=== PATIENT | female | born 1990 | race Caucasian/White ===

== ENCOUNTER 2025-03-28 10:27 | Observation (INO) ==
[2025-03-28 12:15] LABS: BASOPHILS % (AUTO) 0.2 % (0.2-1.0); EOSINOPHILS % (AUTO) 0.1 % (0.9-2.9); HEMATOCRIT 38.6 % (36.0-47.0); HEMOGLOBIN 13.1 g/dL (12.0-16.0); LYMPHOCYTES # (AUTO) 2.4 X10^3/uL (1.3-2.9); LYMPHOCYTES % (AUTO) 18.4 % (21.0-51.0); MEAN CORPUSCULAR HEMOGLOBIN 30.8 pg (27.0-34.0); MEAN CORPUSCULAR HGB CONC 33.9 g/dL (33.0-35.0); MEAN CORPUSCULAR VOLUME 90.7 fL (80.0-100.0); MEAN PLATELET VOLUME 7.1 fL (7.4-11.0); MONOCYTES # (AUTO) 0.8 x10^3/uL (0.3-0.8); MONOCYTES % (AUTO) 6.4 % (0.0-13.0); NEUTROPHILS # (AUTO) 9.9 x10^3/uL (2.2-4.8); NEUTROPHILS % (AUTO) 74.9 % (42.0-75.0); PLATELET COUNT 480 X10^3/uL (150.0-450.0); RED BLOOD COUNT 4.25 X10^6/uL (3.5-5.4); RED CELL DISTRIBUTION WIDTH 12.9 % (11.6-16.5); WHITE BLOOD COUNT 13.2 X10^3/uL (3.6-10.0)
[2025-03-28 12:23] LABS: ALANINE AMINOTRANSFERASE 31 Units/L (12-78); ALBUMIN 4.4 g/dL (3.4-5.0); ALKALINE PHOSPHATASE 92 Units/L (46-116); ASPARTATE AMINO TRANSFERASE 18 Units/L (15-37); BLOOD UREA NITROGEN 11 mg/dL (7-18); CALCIUM 9.8 mg/dL (8.5-10.1); CHLORIDE 101 mmol/L (98-107); CREATININE 0.71 mg/dL (0.55-1.02); GLUCOSE 86 mg/dL (65-99); POTASSIUM 3.7 mmol/L (3.5-5.1); SODIUM 138 mmol/L (136-145); TOTAL PROTEIN 9.3 g/dL (6.4-8.2); eGFR NON BLACK RACES > 60 (>60)
--- NOTE | 2025-03-28 13:53 | RAD ---
EXAMINATION: CHEST, 1 VIEW HISTORY: sob, cough; . COMPARISON STUDY: CT chest 02/14/2024 TECHNIQUE: One view FINDINGS: Heart size is normal. Lungs are clear. No pneumothorax. Hilar and mediastinal structures and bony structures are unremarkable. IMPRESSION: No acute findings THIS IS AN ELECTRONICALLY VERIFIED FINAL REPORT 03/28/2025 1:50 PM - Electronically signed by Antwan Westfall MD
[2025-03-28] MEDS: DUONEB 0.5 MG/3 MG (3 mL) NEB SCH (14:04)
[2025-03-28] MEDS: TESSALON PERLES PO PRN (14:21)
[2025-03-28] MEDS: ROBITUSSIN DM PO PRN (14:21)
[2025-03-28] MEDS: LEVAQUIN PREMIX IV 750 MG 750 MG/150 ML BAG IV SCH (14:22)
[2025-03-28] MEDS: NS 1,000 ML IV 1,000 ML IV SCH (14:26)
[2025-03-28 14:53] VITALS: BMI 31.8
[2025-03-28] MEDS: PULMICORT NEB TX 0.5 MG NEB SCH (20:17)
[2025-03-28] MEDS: PROzac PO SCH (20:36)
[2025-03-28] MEDS: TUSSIONEX PENNKINETIC SUSP PO PRN (20:39)
[2025-03-29 05:28] LABS: BASOPHILS % (AUTO) 0.5 % (0.2-1.0); EOSINOPHILS # (AUTO) 0.1 x10^3/uL (0.0-0.2); EOSINOPHILS % (AUTO) 1.1 % (0.9-2.9); HEMATOCRIT 34.6 % (36.0-47.0); HEMOGLOBIN 11.7 g/dL (12.0-16.0); LYMPHOCYTES # (AUTO) 2.4 X10^3/uL (1.3-2.9); MEAN CORPUSCULAR HEMOGLOBIN 30.9 pg (27.0-34.0); MEAN CORPUSCULAR HGB CONC 33.8 g/dL (33.0-35.0); MEAN CORPUSCULAR VOLUME 91.3 fL (80.0-100.0); MEAN PLATELET VOLUME 7.6 fL (7.4-11.0); MONOCYTES # (AUTO) 0.6 x10^3/uL (0.3-0.8); MONOCYTES % (AUTO) 7.9 % (0.0-13.0); NEUTROPHILS # (AUTO) 4.3 x10^3/uL (2.2-4.8); NEUTROPHILS % (AUTO) 57.5 % (42.0-75.0); PLATELET COUNT 391 X10^3/uL (150.0-450.0); RED BLOOD COUNT 3.79 X10^6/uL (3.5-5.4); RED CELL DISTRIBUTION WIDTH 13.1 % (11.6-16.5); WHITE BLOOD COUNT 7.4 X10^3/uL (3.6-10.0)
[2025-03-29 05:40] LABS: ALANINE AMINOTRANSFERASE 26 Units/L (12-78); ALBUMIN 3.5 g/dL (3.4-5.0); ALKALINE PHOSPHATASE 77 Units/L (46-116); ASPARTATE AMINO TRANSFERASE 10 Units/L (15-37); BLOOD UREA NITROGEN 15 mg/dL (7-18); CALCIUM 8.5 mg/dL (8.5-10.1); CARBON DIOXIDE 26.2 mmol/L (21-32); CHLORIDE 106 mmol/L (98-107); CREATININE 0.87 mg/dL (0.55-1.02); GLUCOSE 88 mg/dL (65-99); POTASSIUM 3.8 mmol/L (3.5-5.1); SODIUM 143 mmol/L (136-145); TOTAL PROTEIN 7.4 g/dL (6.4-8.2); eGFR NON BLACK RACES > 60 (>60)
[2025-03-29 06:01] LABS: BAND NEUTROPHILS % 1 % (0-10); METAMYELOCYTES % 2; PLATELET MORPHOLOGY COMMENT NORMAL (NORMAL)
[2025-03-29] MEDS ORDERED: PROzac PO SCH (09:00)
[2025-03-29] MEDS: SOLU-Medrol 40 MG VIAL IVP SCH (10:37)
--- NOTE | 2025-03-29 11:08 | DR.H&P ---
H&P History & Physical for Day of: H&P Date: 03/28/25 Chief Complaint Chief Complaint: cough shortness of breath History of Present Illness History of Present Illness: Patient is a 35-year-old female presenting with cough, shortness of breath, and weakness for the past few days. She reports that her children were recently diagnosed with flu. She reports symptoms have progressively gotten worse and has had chills. Labs/imaging: WBC 13.2, hemoglobin 13.1, platelets 480, sodium 138, potassium 3.7, creatinine 0.71, glucose 86, D-dimer 0.3, AIT pending, chest x-ray was obtained that revealed no acute cardiopulmonary findings. Due to her symptoms patient was admitted for pneumonia. She was started on IV antibiotics Levaquin, scheduled bronchodilators, antitussive medication. Home medications were restarted. Otherwise continue current treatment plan. Continue closely monitor and follow- up labs/imaging. Past Surgical History Surgical History: Family History Family Medical History: Diabetes Mellitus, Cancer, [place] and Hypertension Social History Type of Tobacco Use: None Alcohol Use: Rarely Drug Use: None Medications Home Medications: Home Medications Medication Instructions Recorded Confirmed Type albuterol sulfate 2.5 mg/3 mL 2.5 mg inhalation QID MI N 03/28/25 03/28/25 History (0.083 %) solution for nebulization cefdinir 300 mg capsule 300 mg PO BID 03/28/2503/28 History codeine 10 mg-guaifenesin 100 mg/5 5 ml PO BID 5 03/28/25 History mL oral liquid dicyclomine 20 mg tablet 20 mg PO TID 03/28/25 History fluoxetine 20 mg capsule 20 mg PO QPM 03/28/25 History ipratropium bromide 0.02 % 0.02 mg inhalation QID PRN 03/28/25 03/28/25 History solution for inhalation risankizumab-rzaa 150 mg/mL 150 mg subcut DIRECTED 03/28/25 03/28/25 History subcutaneous pen injector (Skyrizi) Allergies Allergies Allergy/AdvReac Type Severity Reaction Status Date / Time No Known Drug Allergies Allergy Unknown Verified 03/29/25 07:41 Labs 03/29/25 04:17 03/29/25 04:17 Labs: Laboratory WBC 7.4 X10^3/uL (3.6-10.0) 03/29/25 04:17 RBC 3.79 X10^6/uL (3.5-5.4) 03/29/25 04:17 Hgb 11.7 g/dL (12.0-16.0) L 03/29/25 04:17 Hct 34.6 % (36.0-47.0) L 03/29/25 04:17 MCV 91.3 fL (80.0-100.0) 03/29/25 04:17 MCH 30.9 pg (27.0-34.0) 03/29/25 04:17 MCHC 33.8 g/dL (33.0-35.0) 03/29/25 04:17 RDW 13.1 % (11.6-16.5) 03/29/25 04:17 Plt Count 391 X10^3/uL (150.0-450.0) 03/29/25 04:17 Plt Count Comment Adequate (ADEQUATE) 03/29/25 04:17 MPV 7.6 fL (7.4-11.0) 03/29/25 04:17 Neut % (Auto) 57.5 % (42.0-75.0) 03/29/25 04:17 Lymph % (Auto) 33.0 % (21.0-51.0) 03/29/25 04:17 [place] % (Auto) 7.9 % (0.0-13.0) 03/29/25 04:17 Eos % (Auto) 1.1 % (0.9-2.9) 03/29/25 04:17 Baso % (Auto) 0.5 % (0.2-1.0) 03/29/25 04:17 Neut # (Auto) 4.3 x10^3/uL (2.2-4.8) 03/29/25 04:17 Lymph # (Auto) 2.4 X10^3/uL (1.3-2.9) 03/29/25 04:17 [place] # (Auto) 0.6 x10^3/uL (0.3-0.8) 03/29/25 04:17 Eos # (Auto) 0.1 x10^3/uL (0.0-0.2) 03/29/25 04:17 Baso # (Auto) 0.0 X10^3/uL (0.0-0.1) 03/29/25 04:17 Absolute Nucleated RBC 0.1 /100WBC 03/29/25 04:17 Total Counted 100 03/29/25 04:17 Neutrophils % (Manual) 57 % (39-76) 03/29/25 04:17 Band Neutrophils % 1 % (0-10) 03/29/25 04:17 Lymphocytes % (Manual) 37 % (13-43) 03/29/25 04:17 Monocytes % (Manual) 3 % (4-9) L 03/29/25 04:17 Metamyelocytes % 2 03/29/25 04:17 Plt Morphology Comment Normal (NORMAL) 03/29/25 04:17 RBC Morphology Normal (NORMAL) 03/29/25 04:17 D-Dimer 0.30 ug/ml (0.0-0.57) 03/28/25 11:55 Sodium 143 mmol/L (136-145) 03/29/25 04:17 Corrected Sodium TNP 03/29/25 04:17 Potassium 3.8 mmol/L (3.5-5.1) 03/29/25 04:17 Chloride 106 mmol/L (98-107) 03/29/25 04:17 Carbon Dioxide 26.2 mmol/L (21-32) 03/29/25 04:17 BUN 15 mg/dL (7-18) 03/29/25 04:17 Creatinine 0.87 mg/dL (0.55-1.02) 03/29/25 04:17 Est GFR (MDRD) Af Amer > 60 (>60) 03/29/25 04:17 Est GFR (MDRD) Non-Af > 60 (>60) 03/29/25 04:17 Glucose 88 mg/dL (65-99) 03/29/25 04:17 Calcium 8.5 mg/dL (8.5-10.1) 03/29/25 04:17 Corrected Calcium TNP 03/29/25 04:17 Magnesium 2.0 mg/dL (2.0-2.9) 03/29/25 04:17 Total Bilirubin 0.20 mg/dL (0.2-1.0) 03/29/25 04:17 AST 10 Units/L (15-37) L 03/29/25 04:17 ALT 26 Units/L (12-78) 03/29/25 04:17 Alkaline Phosphatase 77 Units/L (46-116) 03/29/25 04:17 Total Protein 7.4 g/dL (6.4-8.2) 03/29/25 04:17 Albumin 3.5 g/dL (3.4-5.0) 03/29/25 04:17 Globulin 3.9 g/dL (2.5-4.5) 03/29/25 04:17 Albumin/Globulin Ratio 0.9 Ratio (1.1-2.1) L 03/29/25 04:17 Influenza Type A Ag Negative-presumptive (NEGATIVE) 03/28/25 12:40 Influenza Type B Ag Negative-presumptive (NEGATIVE) 03/28/25 12:40 Resp Viral Panel (PCR) See scanned report 03/28/25 14:11 Review of Systems Constitutional: Chills and Weakness Eyes: No Symptoms Reported ENT: No Symptoms Reported Respiratory: Cough and Shortness of Breath Cardiovascular: No Symptoms Reported Gastrointestinal: No Symptoms Reported Genitourinary: No Symptoms Reported Musculoskeletal: No Symptoms Reported Skin: No Symptoms Reported Neurological: No Symptoms Reported Physical Exam Vital Signs: Vital Signs Temperature 99.3 F Temperature 98.4 F Pulse Rate 113 Pulse Rate 113 Pulse Rate 70 Respiratory Rate 20 Blood Pressure 127/78 O2 Sat by Pulse Oximetry 97 O2 Sat by Pulse Oximetry 97 O2 Sat by Pulse Oximetry 97 Oriented: Normal Eyes: Normal Ear: Normal Nose: Normal Throat: Normal Respiratory: Rhonchi Throughout Cardiovascular: Normal : Normal Auscultation: Bowel Sounds: Normal Palpation: Normal Tenderness: Normal Skin: Normal Musculoskeletal: Normal Psychiatric: Normal Mood Description: Calm and Appropriate Affect: Normal Speech Pattern: Clear and Appropriate Assessment/Plan (1) CAP (community acquired pneumonia): Qualifiers: Laterality: unspecified laterality Qualified Code(s): J18.9 - Pneumonia, unspecified organism Status: Acute Plan: IV antibiotics (2) Acute bronchitis: Qualifiers: Bronchitis organism: unspecified organism Qualified Code(s): J20.9 - Acute bronchitis, unspecified Status: None Review H&P Reviewed: Yes Patient was examined?: Yes
--- NOTE | 2025-03-29 11:26 | PCM.PROG ---
Progress Note Progress Note for Day of Date of Exam: 03/29/25 Subjective Subjective: Patient is a 35-year-old female admitted for community-acquired pneumonia. This morning she is resting in bed. She reports improvement in her symptoms. No acute events overnight. Labs/imaging: WBC 7.4, hemoglobin 11.7, platelets 391, sodium 143, potassium 3.8, creatinine 0.87, glucose 88. AIT negative. Leukocytosis trending down. Will start patient on IV Solu-Medrol 40 mg daily to help with bronchiolitis. Continue IV Levaquin. Scheduled bronchodilators. Home medications have been resumed. Antitussive medications as needed. Otherwise continue current treatment plan. Continue closely monitor and follow-up labs/imaging. Past Medical Family Social History Allergies: Allergies No Known Drug Allergies Allergy (Unknown, Verified 03/29/25 07:41) Onset Date: 08/19/2020 Review of Systems ROS changes noted: see HPI Vital Signs and I&O's Vital Signs: Vital Signs Temperature 99.3 F Temperature 98.4 F Pulse Rate 113 Pulse Rate 113 Pulse Rate 70 Respiratory Rate 20 Blood Pressure 127/78 O2 Sat by Pulse Oximetry 97 O2 Sat by Pulse Oximetry 97 O2 Sat by Pulse Oximetry 97 Intake and Output: Intake & Output 03/26/25 03/27/25 03/28/25 03/29/25 23:59 23:59 23:59 23:59 Intake Total 1700 / 1700 1653 / 1653 Balance 1700 / 1700 1653 / 1653 Physical Exam Oriented: Normal Eyes: Normal Ear: Normal Nose: Normal Throat: Normal Respiratory: Rhonchi Cardiovascular: Normal : Normal Auscultation: Bowel Sounds: Normal Tenderness: Normal Skin: Normal Musculoskeletal: Normal Psychiatric: Normal Mood Description: Calm and Appropriate Affect: Normal Speech Pattern: Clear and Appropriate Laboratory and Diagnostics 03/29/25 04:17 03/29/25 04:17 Labs: Laboratory WBC 7.4 X10^3/uL (3.6-10.0) 03/29/25 04:17 RBC 3.79 X10^6/uL (3.5-5.4) 03/29/25 04:17 Hgb 11.7 g/dL (12.0-16.0) L 03/29/25 04:17 Hct 34.6 % (36.0-47.0) L 03/29/25 04:17 MCV 91.3 fL (80.0-100.0) 03/29/25 04:17 MCH 30.9 pg (27.0-34.0) 03/29/25 04:17 MCHC 33.8 g/dL (33.0-35.0) 03/29/25 04:17 RDW 13.1 % (11.6-16.5) 03/29/25 04:17 Plt Count 391 X10^3/uL (150.0-450.0) 03/29/25 04:17 Plt Count Comment Adequate (ADEQUATE) 03/29/25 04:17 MPV 7.6 fL (7.4-11.0) 03/29/25 04:17 Neut % (Auto) 57.5 % (42.0-75.0) 03/29/25 04:17 Lymph % (Auto) 33.0 % (21.0-51.0) 03/29/25 04:17 [place] % (Auto) 7.9 % (0.0-13.0) 03/29/25 04:17 Eos % (Auto) 1.1 % (0.9-2.9) 03/29/25 04:17 Baso % (Auto) 0.5 % (0.2-1.0) 03/29/25 04:17 Neut # (Auto) 4.3 x10^3/uL (2.2-4.8) 03/29/25 04:17 Lymph # (Auto) 2.4 X10^3/uL (1.3-2.9) 03/29/25 04:17 [place] # (Auto) 0.6 x10^3/uL (0.3-0.8) 03/29/25 04:17 Eos # (Auto) 0.1 x10^3/uL (0.0-0.2) 03/29/25 04:17 Baso # (Auto) 0.0 X10^3/uL (0.0-0.1) 03/29/25 04:17 Absolute Nucleated RBC 0.1 /100WBC 03/29/25 04:17 Total Counted 100 03/29/25 04:17 Neutrophils % (Manual) 57 % (39-76) 03/29/25 04:17 Band Neutrophils % 1 % (0-10) 03/29/25 04:17 Lymphocytes % (Manual) 37 % (13-43) 03/29/25 04:17 Monocytes % (Manual) 3 % (4-9) L 03/29/25 04:17 Metamyelocytes % 2 03/29/25 04:17 Plt Morphology Comment Normal (NORMAL) 03/29/25 04:17 RBC Morphology Normal (NORMAL) 03/29/25 04:17 D-Dimer 0.30 ug/ml (0.0-0.57) 03/28/25 11:55 Sodium 143 mmol/L (136-145) 03/29/25 04:17 Corrected Sodium TNP 03/29/25 04:17 Potassium 3.8 mmol/L (3.5-5.1) 03/29/25 04:17 Chloride 106 mmol/L (98-107) 03/29/25 04:17 Carbon Dioxide 26.2 mmol/L (21-32) 03/29/25 04:17 BUN 15 mg/dL (7-18) 03/29/25 04:17 Creatinine 0.87 mg/dL (0.55-1.02) 03/29/25 04:17 Est GFR (MDRD) Af Amer > 60 (>60) 03/29/25 04:17 Est GFR (MDRD) Non-Af > 60 (>60) 03/29/25 04:17 Glucose 88 mg/dL (65-99) 03/29/25 04:17 Calcium 8.5 mg/dL (8.5-10.1) 03/29/25 04:17 Corrected Calcium TNP 03/29/25 04:17 Magnesium 2.0 mg/dL (2.0-2.9) 03/29/25 04:17 Total Bilirubin 0.20 mg/dL (0.2-1.0) 03/29/25 04:17 AST 10 Units/L (15-37) L 03/29/25 04:17 ALT 26 Units/L (12-78) 03/29/25 04:17 Alkaline Phosphatase 77 Units/L (46-116) 03/29/25 04:17 Total Protein 7.4 g/dL (6.4-8.2) 03/29/25 04:17 Albumin 3.5 g/dL (3.4-5.0) 03/29/25 04:17 Globulin 3.9 g/dL (2.5-4.5) 03/29/25 04:17 Albumin/Globulin Ratio 0.9 Ratio (1.1-2.1) L 03/29/25 04:17 Influenza Type A Ag Negative-presumptive (NEGATIVE) 03/28/25 12:40 Influenza Type B Ag Negative-presumptive (NEGATIVE) 03/28/25 12:40 Resp Viral Panel (PCR) See scanned report 03/28/25 14:11 Plan (1) CAP (community acquired pneumonia): Status: Acute Qualifiers: Laterality: unspecified laterality Qualified Code(s): J18.9 - Pneumonia, unspecified organism Plan: IV antibiotics (2) Acute bronchitis: Status: None Qualifiers: Bronchitis organism: unspecified organism Qualified Code(s): J20.9 - Acute bronchitis, unspecified
[2025-03-29] MEDS: RESTORIL CAP 15 MG PO PRN (20:31)
[2025-03-30 04:16] VITALS: RESP 18
[2025-03-30 04:36] LABS: BASOPHILS % (AUTO) 0.2 % (0.2-1.0); EOSINOPHILS % (AUTO) 0.3 % (0.9-2.9); HEMATOCRIT 35.5 % (36.0-47.0); HEMOGLOBIN 12.4 g/dL (12.0-16.0); LYMPHOCYTES # (AUTO) 2.2 X10^3/uL (1.3-2.9); MEAN CORPUSCULAR HEMOGLOBIN 31.7 pg (27.0-34.0); MEAN CORPUSCULAR VOLUME 90.6 fL (80.0-100.0); MEAN PLATELET VOLUME 7.2 fL (7.4-11.0); MONOCYTES # (AUTO) 0.7 x10^3/uL (0.3-0.8); MONOCYTES % (AUTO) 6.1 % (0.0-13.0); NEUTROPHILS # (AUTO) 7.7 x10^3/uL (2.2-4.8); NEUTROPHILS % (AUTO) 72.4 % (42.0-75.0); PLATELET COUNT 411 X10^3/uL (150.0-450.0); RED BLOOD COUNT 3.92 X10^6/uL (3.5-5.4); RED CELL DISTRIBUTION WIDTH 13.4 % (11.6-16.5); WHITE BLOOD COUNT 10.6 X10^3/uL (3.6-10.0)
[2025-03-30 04:46] LABS: ALANINE AMINOTRANSFERASE 24 Units/L (12-78); ALBUMIN 3.6 g/dL (3.4-5.0); ALKALINE PHOSPHATASE 80 Units/L (46-116); ASPARTATE AMINO TRANSFERASE 10 Units/L (15-37); BLOOD UREA NITROGEN 9 mg/dL (7-18); CALCIUM 8.7 mg/dL (8.5-10.1); CARBON DIOXIDE 26.9 mmol/L (21-32); CHLORIDE 103 mmol/L (98-107); CREATININE 0.75 mg/dL (0.55-1.02); GLUCOSE 97 mg/dL (65-99); POTASSIUM 4.1 mmol/L (3.5-5.1); SODIUM 141 mmol/L (136-145); TOTAL PROTEIN 7.7 g/dL (6.4-8.2); eGFR NON BLACK RACES > 60 (>60)
[2025-03-30 08:13] VITALS: BP 128/72; PULSE 105; TEMP 98.4
[2025-03-30 09:24] VITALS: O2SAT 96
--- NOTE | 2025-04-03 16:12 | W.DIS.FURT ---
Summary of Discharge Discharge Summary of Date Date of Exam: 03/30/25 Admission Date Date of Admission: 04/27/25 Admission Diagnosis Hospital Course: Patient is a 35-year-old female admitted for community-acquired pneumonia. Her hospital/treatment course included IV Solu-Medrol 40 mg daily and antibiotics IV Levaquin. Scheduled bronchodilators. Home medications have been resumed. Antitussive medications as needed. She has responded well to treatments and symptoms significantly improved. AIT culture negative. She was discharged in stable condition. Prescribed Levaquin and prednisone. She will follow-up with her PCP in 1 week. Vital Signs: Vital Signs (72 hours) 03/28/25 12:00 03/28/25 14:05 03/28/25 14:56 Temperature 98.1 F Pulse Rate 98 H Pulse Rate [Left] 91 H Respiratory Rate 17 Blood Pressure Blood Pressure [Right Arm] 127/81 O2 Sat by Pulse Oximetry 100 99 Oxygen Delivery Method Room Air Room Air FIO2% 03/28/25 16:00 03/28/25 19:00 03/28/25 20:17 Temperature 98.1 F Pulse Rate Pulse Rate [Left] 91 H Respiratory Rate 17 Blood Pressure Blood Pressure [Right Arm] 130/90 O2 Sat by Pulse Oximetry 97 Oxygen Delivery Method Room Air Room Air Room Air FIO2% 03/28/25 20:31 03/28/25 20:44 03/28/25 20:44 Temperature 98.0 F Pulse Rate 103 H 117 H Pulse Rate [Left] Respiratory Rate Blood Pressure 141/63 Blood Pressure [Right Arm] O2 Sat by Pulse Oximetry 98 98 Oxygen Delivery Method FIO2% 03/29/25 00:00 03/29/25 00:04 03/29/25 02:00 Temperature 98.2 F Pulse Rate 76 87 Pulse Rate [Left] Respiratory Rate Blood Pressure 129/81 Blood Pressure [Right Arm] O2 Sat by Pulse Oximetry 96 97 Oxygen Delivery Method FIO2% 03/29/25 04:00 03/29/25 07:00 03/29/25 08:00 Temperature 98.4 F 99.3 F Pulse Rate 70 113 H Pulse Rate [Left] Respiratory Rate 20 Blood Pressure 127/78 Blood Pressure [Right Arm] O2 Sat by Pulse Oximetry 97 97 Oxygen Delivery Method Room Air Room Air FIO2% 03/29/25 08:19 03/29/25 08:19 03/29/25 12:00 Temperature 98.6 F Pulse Rate 113 H 100 H Pulse Rate [Left] Respiratory Rate 20 Blood Pressure 130/70 Blood Pressure [Right Arm] O2 Sat by Pulse Oximetry 97 97 Oxygen Delivery Method Room Air Room Air FIO2% 03/29/25 13:23 03/29/25 16:00 03/29/25 17:42 Temperature 99.2 F Pulse Rate 98 H 79 100 H Pulse Rate [Left] Respiratory Rate 20 Blood Pressure 125/70 Blood Pressure [Right Arm] O2 Sat by Pulse Oximetry 99 97 98 Oxygen Delivery Method Room Air FIO2% 03/29/25 19:00 03/29/25 20:00 03/29/25 20:25 Temperature 99.1 F Pulse Rate 121 H Pulse Rate [Left] Respiratory Rate 18 Blood Pressure 130/72 Blood Pressure [Right Arm] O2 Sat by Pulse Oximetry 96 Oxygen Delivery Method Room Air Room Air Room Air FIO2% 21 03/29/25 20:25 03/30/25 00:00 03/30/25 04:00 Temperature 98.1 F 97.9 F Pulse Rate 113 H 87 81 Pulse Rate [Left] Respiratory Rate 16 18 Blood Pressure 131/76 137/84 Blood Pressure [Right Arm] O2 Sat by Pulse Oximetry 98 97 96 Oxygen Delivery Method Room Air Room Air FIO2% 03/30/25 07:00 03/30/25 07:46 03/30/25 08:00 Temperature 98.4 F Pulse Rate 105 H Pulse Rate [Left] Respiratory Rate 18 Blood Pressure 128/72 Blood Pressure [Right Arm] O2 Sat by Pulse Oximetry 98 Oxygen Delivery Method Room Air Room Air Room Air FIO2% 03/30/25 09:21 Temperature Pulse Rate Pulse Rate [Left] Respiratory Rate 18 Blood Pressure Blood Pressure [Right Arm] O2 Sat by Pulse Oximetry 96 Oxygen Delivery Method Room Air FIO2% Labs: Laboratory Last Values WBC 10.6 X10^3/uL (3.6-10.0) H 03/30/25 04:12 RBC 3.92 X10^6/uL (3.5-5.4) 03/30/25 04:12 Hgb 12.4 g/dL (12.0-16.0) 03/30/25 04:12 Hct 35.5 % (36.0-47.0) L 03/30/25 04:12 MCV 90.6 fL (80.0-100.0) 03/30/25 04:12 MCH 31.7 pg (27.0-34.0) 03/30/25 04:12 MCHC 35.0 g/dL (33.0-35.0) 03/30/25 04:12 RDW 13.4 % (11.6-16.5) 03/30/25 04:12 Plt Count 411 X10^3/uL (150.0-450.0) 03/30/25 04:12 Plt Count Comment Adequate (ADEQUATE) 03/29/25 04:17 MPV 7.2 fL (7.4-11.0) L 03/30/25 04:12 Neut % (Auto) 72.4 % (42.0-75.0) 03/30/25 04:12 Lymph % (Auto) 21.0 % (21.0-51.0) 03/30/25 04:12 [place] % (Auto) 6.1 % (0.0-13.0) 03/30/25 04:12 Eos % (Auto) 0.3 % (0.9-2.9) L 03/30/25 04:12 Baso % (Auto) 0.2 % (0.2-1.0) 03/30/25 04:12 Neut # (Auto) 7.7 x10^3/uL (2.2-4.8) H 03/30/25 04:12 Lymph # (Auto) 2.2 X10^3/uL (1.3-2.9) 03/30/25 04:12 [place] # (Auto) 0.7 x10^3/uL (0.3-0.8) 03/30/25 04:12 Eos # (Auto) 0.0 x10^3/uL (0.0-0.2) 03/30/25 04:12 Baso # (Auto) 0.0 X10^3/uL (0.0-0.1) 03/30/25 04:12 Absolute Nucleated RBC 0.1 /100WBC 03/30/25 04:12 Total Counted 100 03/29/25 04:17 Neutrophils % (Manual) 57 % (39-76) 03/29/25 04:17 Band Neutrophils % 1 % (0-10) 03/29/25 04:17 Lymphocytes % (Manual) 37 % (13-43) 03/29/25 04:17 Monocytes % (Manual) 3 % (4-9) L 03/29/25 04:17 Metamyelocytes % 2 03/29/25 04:17 Plt Morphology Comment Normal (NORMAL) 03/29/25 04:17 RBC Morphology Normal (NORMAL) 03/29/25 04:17 D-Dimer 0.30 ug/ml (0.0-0.57) 03/28/25 11:55 Sodium 141 mmol/L (136-145) 03/30/25 04:12 Corrected Sodium TNP 03/30/25 04:12 Potassium 4.1 mmol/L (3.5-5.1) 03/30/25 04:12 Chloride 103 mmol/L (98-107) 03/30/25 04:12 Carbon Dioxide 26.9 mmol/L (21-32) 03/30/25 04:12 BUN 9 mg/dL (7-18) 03/30/25 04:12 Creatinine 0.75 mg/dL (0.55-1.02) 03/30/25 04:12 Est GFR (MDRD) Af Amer > 60 (>60) 03/30/25 04:12 Est GFR (MDRD) Non-Af > 60 (>60) 03/30/25 04:12 Glucose 97 mg/dL (65-99) 03/30/25 04:12 Calcium 8.7 mg/dL (8.5-10.1) 03/30/25 04:12 Corrected Calcium TNP 03/30/25 04:12 Magnesium 2.0 mg/dL (2.0-2.9) 03/29/25 04:17 Total Bilirubin 0.20 mg/dL (0.2-1.0) 03/30/25 04:12 AST 10 Units/L (15-37) L 03/30/25 04:12 ALT 24 Units/L (12-78) 03/30/25 04:12 Alkaline Phosphatase 80 Units/L (46-116) 03/30/25 04:12 Total Protein 7.7 g/dL (6.4-8.2) 03/30/25 04:12 Albumin 3.6 g/dL (3.4-5.0) 03/30/25 04:12 Globulin 4.1 g/dL (2.5-4.5) 03/30/25 04:12 Albumin/Globulin Ratio 0.9 Ratio (1.1-2.1) L 03/30/25 04:12 Influenza Type A Ag Negative-presumptive (NEGATIVE) 03/28/25 12:40 Influenza Type B Ag Negative-presumptive (NEGATIVE) 03/28/25 12:40 Resp Viral Panel (PCR) See scanned report 03/28/25 14:11 Reason For Visit: PNEUMONIA Discharge Date Discharge Date: 03/30/25 Discharge Diagnosis All Active Problems (Updated 03/29/25 @ 11:08 by Dimitrios Seaman MD) CAP (community acquired pneumonia) (Acute) Kidney stone on left side (Acute) Sepsis (Acute) Intractable pain (Acute) Plan of Treatment: Continue with present treatment and follow up plan. Pt is to keep follow up appointment as instructed and take medications as ordered. Discharge Medications Discharge Medications: No Known Drug Allergies Allergy (Unknown, Verified 03/29/25 07:41) CONTINUE taking the following medications albuterol sulfate 2.5 mg/3 mL (0.083 %) solution for nebulization 2.5 mg inhalation QID PRN 03/28/25 [History] codeine 10 mg-guaifenesin 100 mg/5 mL oral liquid 5 ml PO BID 03/28/25 [History] dicyclomine 20 mg tablet 20 mg PO TID 03/28/25 [History] fluoxetine 20 mg capsule 20 mg PO QPM 03/28/25 [History] ipratropium bromide 0.02 % solution for inhalation 0.02 mg inhalation QID PRN 03/28/25 [History] risankizumab-rzaa 150 mg/mL subcutaneous pen injector (Skyrizi) 150 mg subcut DIRECTED 03/28/25 [History] New Prescriptions levofloxacin 750 mg tablet 750 mg PO QDAY #5 tabs 03/30/25 [Rx] prednisone 10 mg tablet 10 mg PO BID #10 tabs 03/30/25 [Rx] Discharge Disposition Assessment: No distress noted. Discharge Plan Discharge Plan Hospital Course: Patient is a 35-year-old female admitted for community-acquired pneumonia. Her hospital/treatment course included IV Solu-Medrol 40 mg daily and antibiotics IV Levaquin. Scheduled bronchodilators. Home medications have been resumed. Antitussive medications as needed. She has responded well to treatments and symptoms significantly improved. AIT culture negative. She was discharged in stable condition. Prescribed Levaquin and prednisone. She will follow-up with her PCP in 1 week. Patient Disposition: 01 HOME, SELF-CARE Condition: Stable Health Concerns: Post Hospitalization: new medications and changes needed to prevent readmission or further decline. Pt educated and given instructions on all concerns. Care Plan Goals: Problem: Respiratory Complications Goal: Improved Uncomplicated Respiratory Status Instructions: Follow provided instructions. Follow up with primary physician as directed. Contact primary care physician or report to the closest Emergency Room if condition worsens. Plan of Treatment: Continue with present treatment and follow up plan. Pt is to keep follow up appointment as instructed and take medications as ordered. Assessment: No distress noted. Prescriptions: New prednisone 10 mg Tablet 10 mg PO BID Qty: 10 0RF Rx Instructions: see taper instructions levofloxacin 750 mg Tablet 750 mg PO QDAY Qty: 5 0RF Discontinued cefdinir 300 mg capsule 300 mg PO BID No Action albuterol sulfate 2.5 mg /3 mL (0.083 %) solution for nebulization 2.5 mg inhalation QID PRN Patient Comments: [NO ORIGINAL SIG] dicyclomine 20 mg tablet 20 mg PO TID codeine-guaifenesin 10-100 mg/5 mL liquid 5 ml PO BID fluoxetine 20 mg capsule 20 mg PO QPM ipratropium bromide 0.02 % solution 0.02 mg inhalation QID PRN Patient Comments: [NO ORIGINAL SIG] Skyrizi 150 mg/mL pen injector 150 mg SUBCUT DIRECTED Patient Comments: [NO ORIGINAL SIG] Orders to Discharge Patient Discharge Orders: Discharge (Routine); Ordered 03/30/25 Ordered By: Dimitrios Seaman Follow ups/Referrals Follow ups/Referrals: HELEN PAEZ [Nurse Practitioner, Unknown] - 04/11/25 10:40 am Instructions Instructions: Viral Respiratory Infection, [id number], Acute Bronchitis, Adult, [id number], Community-Acquired Pneumonia, Adult, [id number] Stand Alone Forms: Excuse From Work or School, Find Help Web Site, Post Hospital Follow Up Care Print Language: HUNG[place]
== END 2025-03-30 10:00 | disposition home or self-care (01) ==
LOC: ICU
PROVIDERS: ADMIT Internal Medicine; ATTEND Internal Medicine
DX: J20.8 Acute bronchitis due to other specified organisms; J18.8 Other pneumonia, unspecified organism; R06.02 Shortness of breath; R05.8 Other specified cough